=== PATIENT | male | born 1965 | race Caucasian/White ===

== ENCOUNTER 2024-09-20 20:24 | Emergency (ER) | payer OTHER, SELFPAY ==
--- NOTE | ~2024-09-20 | XR_ITS ---
EXAMINATION: XR hand LT min 3V DATE: 09/20/2024 21:18 INDICATION: Left hand ring finger injury. TECHNIQUE: 3 views of left hand were obtained. COMPARISON: None. FINDINGS: Alignment is normal. No fracture. Joint spaces are normal. There are multiple punctate radi opaque foreign bodies overlying fourth digit that may be at the skin. IMPRESSION: 1. Multiple punctate radiopaque foreign bodies overlying fourth digit that may be at the skin. Reviewed, dictated and finalized at location A. [facility]
[2024-09-20 20:26] VITALS: BP 142/86; PULSE 76; RESP 16; TEMP 36.6; O2SAT 100
--- NOTE | 2024-09-20 20:42 | ED.WOUNDLAC ---
HPI - Wound/Laceration General Chief Complaint: Wound/Laceration <David Hardin PA-C - Last Filed: 09/20/24 22:36> Stated Complaint: finger lac <David Hardin PA-C - Last Filed: 09/20/24 22:36> Time Seen by Provider: 09/20/24 20:30 <David Hardin PA-C - Last Filed: 09/20/24 22:36> Source: patient <David Hardin PA-C - Last Filed: 09/20/24 22:36> Mode of arrival: ambulatory <David Hardin PA-C - Last Filed: 09/20/24 22:36> Limitations: no limitations <David Hardin PA-C - Last Filed: 09/20/24 22:36> History of Present Illness HPI narrative: This is a 58-year-old male who presents to the ED for chief complaint left hand ring finger injury occurring just prior to arrival. Patient reports that he slipped down the stairs and got the ring caught on a part of the door. This pulled his hand into the ring and cause injury and swelling to the left ring finger distal to the ring. Patient states that he was unable to remove the ring in the swelling has grown. Denies any further injury. <David Hardin PA-C - Last Filed: 09/20/24 22:36> Review of Systems Review of Systems: All systems as dictated in HPI <David Hardin PA-C - Last Filed: 09/20/24 22:36> PMFSH Family History Family History: Family History (System 10/09/19 @ 16:03 by Julieta Worthington) Father Family history of diabetes mellitus in first degree relative Family history of type 2 diabetes mellitus <David Hardin PA-C - Last Filed: 09/20/24 22:36> Social History Social History: Social History (System 10/09/19 @ 16:03 by Julieta Worthington) Smoking status: Never smoker Second hand tobacco smoke exposure: No Alcohol intake: current <David Hardin PA-C - Last Filed: 09/20/24 22:36> Exam Narrative: GENERAL: Well-appearing, well-nourished, and in no acute distress. HEAD: Normocephalic, atraumatic. EYES: PERRLA and EOMI. ENT: Nares clear, no rhinorrhea or epistaxis. Mucous membranes moist. Oropharynx without tonsillar hypertrophy exudate or other lesions. NECK: Supple. No adenopathy or masses. CHEST: No respiratory distress. Clear to auscultation. No wheezes rales or rhonchi HEART: Regular rate and rhythm. No murmur heard. Normal peripheral pulses. ABDOMEN: Soft, nontender, nondistended, normal active bowel sounds. MSK: Normal range of motion. No edema. SKIN: Warm, dry, no rash. NEURO: Alert and oriented x4. No focal deficits. PSYCH: Normal mood and affect. <David Hardin PA-C - Last Filed: 09/20/24 22:36> Course [employer]/PA Physician Supervision For this patient encounter, I reviewed the [employer] or PA documentation, treatment plan, and medical decision making; and I had [id number] time with this patient. I had [id number] time with the patient completed the removal of the ring. <Theo See MD - Last Filed: 09/20/24 22:35> Vital Signs Vital signs: Vital Signs Temperature 97.8 F 09/20/24 20:26 Pulse Rate 76 09/20/24 20:26 Respiratory Rate 16 09/20/24 20:26 Blood Pressure 142/86 H 09/20/24 20:26 Pulse Oximetry 100 09/20/24 20:26 Temperature 97.8 F 09/20/24 20:26 Pulse Rate 84 09/20/24 22:05 Respiratory Rate 18 09/20/24 22:05 Blood Pressure 134/82 09/20/24 22:05 Pulse Oximetry 99 09/20/24 22:05 <David Hardin PA-C - Last Filed: 09/20/24 22:36> Vital Signs Temperature 97.8 F 09/20/24 20:26 Pulse Rate 76 09/20/24 20:26 Respiratory Rate 16 09/20/24 20:26 Blood Pressure 142/86 H 09/20/24 20:26 Pulse Oximetry 100 09/20/24 20:26 Temperature 97.8 F 09/20/24 20:26 Pulse Rate 84 12/20/24 22:05 Respiratory Rate 18 09/20/24 22:05 Blood Pressure 134/82 09/20/24 22:05 Pulse Oximetry 99 09/20/24 22:05 <Theo See MD - Last Filed: 09/20/24 22:35> Procedures Foreign Body Removal Foreign Body #1: Foreign Body Removal Date: 09/20/24 <Theo See MD - Last Filed: 09/20/24 22:35> Site: left, upper extremity and hand <Theo See MD - Last Filed: 09/20/24 22:35> Description of foreign body: other (Ring) <Theo See MD - Last Filed: 09/20/24 22:35> Sedation/Analgesia: none <Theo See MD - Last Filed: 09/20/24 22:35> Technique: other (Ring cutter) <Theo See MD - Last Filed: 09/20/24 22:35> Confirmed by:: direct visualization <Theo See MD - Last Filed: 09/20/24 22:35> Complications: none <Theo See MD - Last Filed: 09/20/24 22:35> Post-procedure exam: awake, alert <Theo See MD - Last Filed: 09/20/24 22:35> Neurovascular: normal distal pulse <Theo See MD - Last Filed: 09/20/24 22:35> MDM - Wound/Laceration MDM Narrative Medical decision making narrative: This is a 58-year-old male who presents to the ED for chief complaint of left injury, getting the ring stuck. Vitals are normal. Exam remarkable for the above with significant swelling to the mid phalanx area. The ring was removed without difficulty using ring cutter here. X-rays of the left hand show no acute fracture or dislocation. They do note radiopaque material, however this is most likely just from the ring removal procedure, and more superficial. Patient will be discharged in stable condition. Supportive measures discussed and return precautions given. Patient is understanding and agreeable with plan for discharge with PCP follow-up. <David Hardin PA-C - Last Filed: 09/20/24 22:36> Discharge Plan Discharge Clinical Impression: Injury of ring finger <David Hardin PA-C - Last Filed: 09/20/24 22:36> Patient Disposition: Home, Self-Care <David Hardin PA-C - Last Filed: 09/20/24 22:36> Condition: Stable <David Hardin PA-C - Last Filed: 09/20/24 22:36> Instructions: Antibiotic Form <David Hardin PA-C - Last Filed: 09/20/24 22:36> Additional Instructions: You were seen in the ED today for a stuck rain. The ring was fully removed. There is no fracture or dislocation on the x-ray. Please take Motrin every 6 hours for pain and swelling as well as Tylenol for pain. Swelling should resolve over the next several days. If you have any new or worsening symptoms please return to the ER for further evaluation. <David Hardin PA-C - Last Filed: 09/20/24 22:36> Patient Language: Armenian <David Hardin PA-C - Last Filed: 09/20/24 22:36> Follow-up/Referrals: Edward Coello MD [Physician] - <David Hardin PA-C - Last Filed: 09/20/24 22:36> Time of Disposition: 21:40 <David Hardin PA-C - Last Filed: 09/20/24 22:36> 21:40 <Theo See MD - Last Filed: 09/20/24 22:35>
[2024-09-20] MEDS: HYDROcodone/acetaminophen (*CRX) 5-325 MG TABLET 1 TAB PO (21:11)
[2024-09-20] MEDS: Please add drug allergy info to patient profile. 1 EACH XX (21:12)
[2024-09-20 22:03] VITALS: RESP 18; O2SAT 99
[2024-09-20 22:05] VITALS: BP 134/82; PULSE 84; RESP 18; O2SAT 99
== END 2024-09-20 22:00 | disposition home or self-care (01) ==
PROVIDERS: Emergency Provider Physician Assistant
DX: S69.92XA Unspecified injury of left wrist, hand and finger(s), initial encounter (principal); W10.9XXA Fall (on) (from) unspecified stairs and steps, initial encounter
CPT/HCPCS: 73130; 99283; A9270